=== PATIENT | female | born 1975 | race African-American/Black ===

== ENCOUNTER → 2017-06-24 16:24 | Outpatient (CLI) | payer BC | END | disposition home or self-care (01) | LOC: D.MAMMO 14:45 | DX: Z12.31 Encounter for screening mammogram for malignant neoplasm of breast (principal) ==

== ENCOUNTER 2017-08-05 09:00 | Outpatient (CLI) | payer BC | END 2017-08-05 23:59 | disposition home or self-care (01) | LOC: D.MAMMO 09:00 | DX: R92.8 Other abnormal and inconclusive findings on diagnostic imaging of breast (principal) ==

== ENCOUNTER 2020-08-19 14:00 | Outpatient (CLI) | payer BC | END 2020-08-19 23:59 | disposition home or self-care (01) | LOC: D.MAMMO 14:00 | PROVIDERS: ATTEND Family Medicine | DX: Z12.31 Encounter for screening mammogram for malignant neoplasm of breast (principal) ==